=== PATIENT | male | born 1940 | race Two or more races ===

== ENCOUNTER 2024-07-23 12:20 | Emergency (ER) | payer MEDICARE, OTHER ==
[~2024-07-23] VITALS: Ht 172.7 cm; Wt 74.8 kg
[2024-07-23] MEDS ORDERED: TDAP [DIPH/PERTUSSIS/TET] 0.5 ML VIAL IM ONE (12:53)
[2024-07-23] MEDS: TDAP [DIPH/PERTUSSIS/TET] 0.5 ML VIAL IM ONE (12:56)
[2024-07-23] MEDS ORDERED: LIDOCAINE 1%-EPI 1:100,000 20 ML VIAL ONE (14:25)
[2024-07-23] MEDS: LIDOCAINE 1%-EPI 1:100,000 20 ML VIAL TP ONE (14:28)
[2024-07-23 15:21] VITALS: BP 175/90; TEMP 98.5; O2SAT 98
== END 2024-07-23 15:28 | disposition home or self-care (01) ==
LOC: ER 12:27
DX: S01.111A Laceration without foreign body of right eyelid and periocular area, initial encounter (principal); F03.90 Unspecified dementia, unspecified severity, without behavioral disturbance, psychotic disturbance, mood disturbance, and anxiety; I10 Essential (primary) hypertension; Z86.73 Personal history of transient ischemic attack (TIA), and cerebral infarction without residual deficits; W18.39XA Other fall on same level, initial encounter; Y93.89 Activity, other specified; Y92.89 Other specified places as the place of occurrence of the external cause; Y99.8 Other external cause status
CPT/HCPCS: 99285; 72125; 12011; 90471; 90715; 70450; 70486; A6403; J3490